=== PATIENT | female | born 1965 | race Caucasian/White ===

== ENCOUNTER 2022-06-06 08:18 | Day surgery (SDC) | payer BC ==
[2022-06-06] MEDS ORDERED: Sodium Chloride 0.9(Preservative Free) 10 ML IJ ONE (08:19)
[2022-06-06] MEDS ORDERED: Depo-Medrol 40 MG/ML IM ONE (08:19)
[2022-06-06] MEDS ORDERED: DIPRIVAN 200 MG/20 ML IV ONE (09:53)
[2022-06-06] MEDS ORDERED: Lactated Ringers 1,000 ML IV ONE (10:17)
--- NOTE | 2022-06-06 10:53 | XRAY ---
Indication: Right L3-L5 transforaminal CLARIBEL. Intraoperative fluoroscopy provided for 23 seconds. 4 digital spot image submitted for interpretation demonstrates posterior needle tips projecting over the expected right L3 and L4 nerve roots. Small amount of contrast injected for needle tip placement. Correlate with intraoperative findings/report.
--- NOTE | 2022-06-06 11:35 | XRAY ---
23 seconds fluoroscopy time in surgery for right L3-L5 transforaminal CLARIBEL.
== END 2022-06-06 10:13 | disposition home or self-care (01) ==
LOC: SDC-PAIN 08:18
PROVIDERS: ATTEND Psychiatry & Neurology Pain Medicine
DX: M54.16 Radiculopathy, lumbar region (principal); E11.9 Type 2 diabetes mellitus without complications; Z79.899 Other long term (current) drug therapy
CPT/HCPCS: 64483; 64484; 72100; 77003; 82947; J1030; J2704; Q9966

== ENCOUNTER 2023-01-30 08:22 | Day surgery (SDC) | payer BC, MEDICARE ==
[2023-01-30] MEDS ORDERED: LIDOCAINE HCL 1% 50 MG/5 ML VL PF IJ ONE (08:23)
[2023-01-30] MEDS ORDERED: Sodium Chloride 0.9(Preservative Free) 10 ML IJ ONE (08:23)
[2023-01-30] MEDS ORDERED: Depo-Medrol 40 MG/ML IM ONE (08:23)
[2023-01-30] MEDS ORDERED: DIPRIVAN 200 MG/20 ML IV ONE ×2 (10:09)
[2023-01-30] MEDS ORDERED: MORPHINE SULFATE 2 MG INJ ONE (10:25)
--- NOTE | 2023-01-30 12:15 | XRAY ---
Indication: Lumbar CLARIBEL. Intraoperative fluoroscopy provided for 21 seconds. 2 digital spot image submitted for interpretation demonstrates posterior needle tip projecting posterior to the lumbosacral junction. Small amount of contrast injected for needle tip placement. Correlate with intraoperative findings/report.
--- NOTE | 2023-01-30 12:37 | XRAY ---
21 seconds of fluoroscopy was used in surgery for a lumbar CLARIBEL.
[2023-01-30] MEDS ORDERED: Lactated Ringers 1,000 ML IV ONE (14:15)
== END 2023-01-30 10:30 | disposition home or self-care (01) ==
LOC: SDC-PAIN 08:22
PROVIDERS: ATTEND Psychiatry & Neurology Pain Medicine
DX: M54.16 Radiculopathy, lumbar region (principal); E11.9 Type 2 diabetes mellitus without complications; Z79.899 Other long term (current) drug therapy
CPT/HCPCS: 62323; 72100; 77003; 82947; J1030; J2001; J2270; J2704; Q9966

== ENCOUNTER 2023-11-06 08:18 | Day surgery (SDC) | payer BC, MEDICARE ==
[2023-11-06] MEDS ORDERED: Decadron 4 MG INJ IV ONE (08:19)
[2023-11-06] MEDS ORDERED: Sodium Chloride 0.9(Preservative Free) 10 ML IJ ONE (08:19)
[2023-11-06] MEDS ORDERED: DIPRIVAN 200 MG/20 ML IV ONE ×2 (09:59→10:11)
[2023-11-06] MEDS ORDERED: Versed 2 MG/2 ML Injection ONE (10:08)
[2023-11-06] MEDS ORDERED: MORPHINE SULFATE 2 MG INJ ONE (10:24)
[2023-11-06] MEDS ORDERED: Lactated Ringers 1,000 ML IV ONE (10:42)
--- NOTE | 2023-11-06 12:11 | XRAY ---
Indication: Right L3-L5 transforaminal CLARIBEL. Intraoperative fluoroscopy provided for 33 seconds. 3 digital spot image submitted for interpretation demonstrates posterior needle tips projecting over the expected right L3 and L4 nerve roots. Small amount of contrast injected for needle tip placement. Correlate with intraoperative findings/report.
--- NOTE | 2023-11-06 12:27 | XRAY ---
33 seconds of fluoroscopy was used in surgery for a right L3-L5 transforaminal CLARIBEL.
== END 2023-11-06 10:49 | disposition home or self-care (01) ==
LOC: SDC-PAIN 08:18
PROVIDERS: ATTEND Psychiatry & Neurology Pain Medicine
DX: M54.16 Radiculopathy, lumbar region (principal); E11.9 Type 2 diabetes mellitus without complications; Z79.899 Other long term (current) drug therapy
CPT/HCPCS: 64483; 64484; 72100; 77003; 82947; J1100; J2250; J2270; J2704; Q9966

== ENCOUNTER 2024-05-06 08:33 | Day surgery (SDC) | payer BC, MEDICARE ==
[2024-05-06] MEDS ORDERED: Sodium Chloride 0.9(Preservative Free) 10 ML IJ ONE (08:34)
[2024-05-06] MEDS ORDERED: Decadron 4 MG INJ IV ONE (08:34)
[2024-05-06] MEDS ORDERED: DIPRIVAN 200 MG/20 ML IV ONE ×2 (10:34→10:45)
[2024-05-06] MEDS ORDERED: MORPHINE SULFATE 2 MG INJ ONE (10:51)
[2024-05-06] MEDS ORDERED: BENADRYL 50 MG/ML ONE (11:05)
[2024-05-06] MEDS ORDERED: Lactated Ringers 1,000 ML IV ONE (11:47)
--- NOTE | 2024-05-06 12:38 | XRAY ---
Indication: Right L3-L5 transforaminal CLARIBEL. Intraoperative fluoroscopy provided for 28 seconds. 5 digital spot images submitted for interpretation demonstrates posterior needle tips projecting over the expected right L3 and L4 nerve roots. Small amount of contrast injected for needle tip placement. Correlate with intraoperative findings/report.
--- NOTE | 2024-05-06 13:36 | XRAY ---
28 seconds of fluoroscopy was used in surgery for a right L3-L5 transforaminal CLARIBEL.
== END 2024-05-06 11:25 | disposition home or self-care (01) ==
LOC: SDC-PAIN 08:33
PROVIDERS: ATTEND Psychiatry & Neurology Pain Medicine
DX: M54.16 Radiculopathy, lumbar region (principal); E11.9 Type 2 diabetes mellitus without complications
CPT/HCPCS: 64483; 64484; 72100; 77003; 82947; J1100; J1200; J2270; J2704; Q9966